=== PATIENT | female | born 1990 | race Hispanic/Latino ===

== ENCOUNTER → 2021-03-05 | Emergency (ER) | payer BC, OTHER ==
[~2021-03-05] VITALS: Ht 154.9 cm; Wt 72.6 kg
[~2021-03-05] MED LIST: KETOROLAC TROMETHAMINE 30 MG/ML VIAL IV NR; PANTOPRAZOLE 40 MG 10ML VIAL IV NR; SODIUM CHLORIDE 0.9% 1000ML 1,000 ML IV STA
[2021-03-05 11:51] LABS: BASOPHILS % 0.3 % (0.0-1.0); EOSINOPHILS # (AUTO) 0.1 (0.0-0.4); EOSINOPHILS % 1.6 % (0.0-6.0); HEMATOCRIT 42.6 % (34.2-44.1); LYMPHOCYTES # (AUTO) 1.5 (1.0-3.2); LYMPHOCYTES % 23.5 % (18.0-39.1); MEAN CORPUSCULAR HEMOGLOBIN 32.1 pg (28-32); MEAN CORPUSCULAR HGB CONC 32.9 g/dL (31-35); MEAN CORPUSCULAR VOLUME 97.7 fL (81-99); MONOCYTES # (AUTO) 0.4 (0.2-0.8); MONOCYTES % 6.6 % (4.4-11.3); NEUTROPHILS # (AUTO) 4.3 (2.1-6.9); NEUTROPHILS % 67.7 % (38.7-80.0); PLATELET COUNT 252 x10e3/uL (140-360); RED BLOOD COUNT 4.36 x10e6/uL (3.6-5.1); RED CELL DISTRIBUTION WIDTH 12.1 % (11.7-14.4)
[2021-03-05 12:00] LABS: CLARITY,URINE CLEAR (CLEAR); COLOR,URINE YELLOW (YELLOW); KETONES,URINE NEGATIVE (NEGATIVE); LEUKOCYTE ESTERASE ,URINE NEGATIVE (NEGATIVE); NITRITE,URINE NEGATIVE (NEGATIVE); PROTEIN,URINE DIPSTICK NEGATIVE (NEGATIVE); URINE UROBILINOGEN 0.2 mg/dL (0.2 - 1)
[2021-03-05 12:15] LABS: BACTERIA,URINE FEW /HPF; EPITHELIAL CELLS,URINE FEW /LPF; MUCUS,URINE RARE (RARE); RBC,URINE 0-5 /HPF (0-5); WBC,URINE (MAN) 0-5 /HPF (0-5)
[2021-03-05 12:17] LABS: ALANINE AMINOTRANSFERASE 11 IU/L (0-55); ALBUMIN/GLOBULIN RATIO 1.1 (0.8-2.0); ALKALINE PHOSPHATASE 81 IU/L (40-150); BLOOD UREA NITROGEN 11 mg/dL (7-26); BUN/CREATININE RATIO 15 (6-25); CALCIUM 8.9 mg/dL (8.4-10.2); CARBON DIOXIDE 24 mmol/L (22-29); CHLORIDE 103 mmol/L (98-107); CREATINE KINASE 51 IU/L (29-168); CREATININE, SERUM 0.75 mg/dL (0.57-1.11); EST GLOMERULAR FILTRATION RATE > 60 ML/MIN (60-); GLUCOSE 87 mg/dL (74-118); MAGNESIUM 1.9 MG/DL (1.3-2.1); SODIUM 136 mmol/L (136-145)
[2021-03-05 12:18] LABS: INR 0.87; PROTHROMBIN TIME 12.4 seconds (11.9-14.5)
[2021-03-05 12:19] LABS: PARTIAL THROMBOPLASTIN TIME 29.2 seconds (23.8-35.5)
== END | disposition home or self-care (01) ==
LOC: ER 11:15
DX: R06.02 Shortness of breath (principal); M94.0 Chondrocostal junction syndrome [Tietze]
CPT/HCPCS: 36415; 71045; 80053; 81001; 81025; 82550; 82553; 83735; 84484; 84702; 85025; 85379; 85610; 85730; 87086; 93005; 99284; C9113; J1885; J7030

== ENCOUNTER → 2021-09-22 | Outpatient (CLI) | payer BC ==
[2021-09-22 15:01] LABS: ALBUMIN 3.9 g/dL (3.5-5.0); BILIRUBIN,DIRECT 0.2 mg/dL (0.0-0.5)
== END ==
LOC: LAB 13:59
PROVIDERS: ATTEND Podiatrist Foot & Ankle Surgery
DX: R94.5 Abnormal results of liver function studies (principal)
CPT/HCPCS: 36415; 80076

== ENCOUNTER 2024-10-05 06:12 | Inpatient (IN) | payer BC ==
[~2024-10-05] VITALS: Ht 154.9 cm; Wt 70.3 kg
[2024-10-05] VITALS (8 sets, daily range): BP systolic 113–121; BP diastolic 66–78; PULSE 60–85; RESP 16–19; TEMP 97.5–99.1; O2SAT 97–100
[~2024-10-05 06:12] MED LIST changes: +ASHWAGANDHA300 MG; +BUPROPION XL150 MG PO; +HAIR, SKIN A66.7 MCG; -KETOROLAC TROMETHAMINE 30 MG/ML VIAL IV NR; +MULTI-VITAMIN1 EACH PO; -PANTOPRAZOLE 40 MG 10ML VIAL IV NR; -SODIUM CHLORIDE 0.9% 1000ML 1,000 ML IV STA
[2024-10-05] MEDS: LACTATED RINGER'S 1,000 ML ONE (07:07)
[2024-10-05] MEDS: CEFAZOLIN SODIUM 2 GM ONE (07:08)
[2024-10-05] MEDS ORDERED: MIDAZOLAM HCL 2 MG/2 ML VIAL ONE (07:48)
[2024-10-05] MEDS ORDERED: PROPOFOL IV EMULSION 10 MG/ML 20 ML VIAL ONE (07:48)
[2024-10-05] MEDS ORDERED: LIDOCAINE HCL 2% LOCAL INJ 5 ML SDV VIAL INJ ONE (07:48)
[2024-10-05] MEDS ORDERED: FENTANYL CITRATE/PF 100MCG/2 ML INJ ONE (07:48)
[2024-10-05] MEDS ORDERED: ROCURONIUM BROMIDE 1 ML IV ONE (07:48)
[2024-10-05] MEDS ORDERED: FAMOTIDINE 20 MG/2 ML VIAL IV ONE (07:51)
[2024-10-05] MEDS ORDERED: HYDROCODONE/APAP 7.5MG-325MG 1 EA TAB PO PRN (08:00)
[2024-10-05] MEDS ORDERED: SCOPOLAMINE 1 MG PATCH TOP SCH (08:00)
[2024-10-05] MEDS ORDERED: DEXAMETHASONE SOD PHOS INJ 4 MG/ML SDV ONE (08:20)
[2024-10-05] MEDS ORDERED: METOCLOPRAMIDE HCL 10 MG/2ML VIAL ONE (08:20)
[2024-10-05] MEDS ORDERED: ACETAMINOPHEN 1000 MG/100 ML 100 ML IV ONE (08:32)
[2024-10-05] MEDS ORDERED: SUGAMMADEX SODIUM 200 MG/2 ML VIAL IV ONE (09:01)
[2024-10-05] MEDS: FENTANYL CITRATE/PF 100MCG/2 ML INJ ONE (10:50)
[2024-10-05] MEDS: Morphine 2mg Syringe 2 MG/ML SYR IV PRN (13:03)
[2024-10-05] MEDS: SCOPOLAMINE 1 MG PATCH TOP SCH (14:10)
[2024-10-05] MEDS: ONDANSETRON HCL INJ 2MG/ML 2ML 2 MG/ML VIAL IV PRN (19:49)
[2024-10-05] MEDS: ENOXAPARIN SOD INJ 40 MG/0.4 ML SYR SC SCH (19:49)
[2024-10-05] MEDS: LACTATED RINGER'S 1,000 ML IV SCH (22:51)
[2024-10-06 03:07] VITALS: BP 107/71; PULSE 66; RESP 18; TEMP 98.5; O2SAT 97
[2024-10-06 05:42] LABS: BASOPHILS % 0.2 % (0.0-1.0); EOSINOPHILS % 0.1 % (0.0-6.0); HEMATOCRIT 37.1 % (34.2-44.1); HEMOGLOBIN 12.7 g/dL (12.0-16.0); LYMPHOCYTES # (AUTO) 1.3 (1.0-3.2); LYMPHOCYTES % 11.2 % (18.0-39.1); MEAN CORPUSCULAR HEMOGLOBIN 33.9 pg (28-32); MEAN CORPUSCULAR HGB CONC 34.2 g/dL (31-35); MEAN CORPUSCULAR VOLUME 98.9 fL (81-99); MONOCYTES # (AUTO) 0.9 (0.2-0.8); MONOCYTES % 7.8 % (4.4-11.3); NEUTROPHILS % 80.1 % (38.7-80.0); PLATELET COUNT 242 x10e3/uL (140-360); RED BLOOD COUNT 3.75 x10e6/uL (3.6-5.1); RED CELL DISTRIBUTION WIDTH 11.7 % (11.7-14.4); WHITE BLOOD COUNT 11.23 x10e3/uL (4.8-10.8)
[2024-10-06 06:17] LABS: ALBUMIN 3.6 g/dL (3.5-5.0); ALBUMIN/GLOBULIN RATIO 1.2 (0.8-2.0); ANION GAP 14.5 mmol/L (8-16); BILIRUBIN,TOTAL 1.3 mg/dL (0.2-1.2); CALCIUM 8.9 mg/dL (8.4-10.2); CREATININE, SERUM 0.77 mg/dL (0.57-1.11); PHOSPHORUS 2.7 MG/DL (2.3-4.7); POTASSIUM 4.5 mmol/L (3.5-5.1); TOTAL PROTEIN 6.5 g/dL (6.5-8.1)
[2024-10-06 07:48] VITALS: PULSE 78; RESP 16; O2SAT 96
[2024-10-06 08:54] VITALS: BP 112/73; PULSE 64; RESP 18; TEMP 97.9; O2SAT 99
[2024-10-06 09:08] VITALS: BP 112/73; PULSE 64; RESP 18; TEMP 97.9; O2SAT 99
[2024-10-06] MEDS ORDERED: DIATRIZOATE MEGL/DIATRIZOA SOD 30 ML BTL PO ONE (09:49)
[2024-10-06 11:56] VITALS: BP 114/77; PULSE 57; RESP 20; TEMP 98.7; O2SAT 100
[2024-10-06 13:08] VITALS: PULSE 76; RESP 16; O2SAT 97
== END 2024-10-06 14:06 | disposition home or self-care (01) | DRG 328 ==
LOC: OR 06:12 → PACU V 07:52 → MED/SURG2 11:08 → OBSVTOIN 10-06 13:24
PROVIDERS: ADMIT Internal Medicine; ATTEND Internal Medicine
PROC: 0BQT4ZZ Repair Diaphragm, Percutaneous Endoscopic Approach (ICD-10-PCS; principal; 2024-10-05 08:02)
PROC: 0D164ZA Bypass Stomach to Jejunum, Percutaneous Endoscopic Approach (ICD-10-PCS; 2024-10-05 08:02)
DX: K21.00 Gastro-esophageal reflux disease with esophagitis, without bleeding (principal); K44.9 Diaphragmatic hernia without obstruction or gangrene; Z98.84 Bariatric surgery status
CPT/HCPCS: 36415; 74246; 80053; 81025; 83735; 84100; 85025; 94799; 99252; G0378; J0690; J1100; J1650; J2003; J2250; J2270; J2405; J2765; Q9963

== ENCOUNTER 2024-10-13 14:03 | Observation (INO) | payer BC ==
[~2024-10-13] VITALS: Ht 154.9 cm; Wt 67.6 kg
[2024-10-13 15:06] LABS: BASOPHILS % 0.2 % (0.0-1.0); EOSINOPHILS # (AUTO) 0.1 (0.0-0.4); EOSINOPHILS % 1.2 % (0.0-6.0); HEMATOCRIT 41.8 % (34.2-44.1); HEMOGLOBIN 14.2 g/dL (12.0-16.0); LYMPHOCYTES # (AUTO) 1.2 (1.0-3.2); LYMPHOCYTES % 24.6 % (18.0-39.1); MONOCYTES # (AUTO) 0.3 (0.2-0.8); MONOCYTES % 5.3 % (4.4-11.3); NEUTROPHILS # (AUTO) 3.4 (2.1-6.9); NEUTROPHILS % 68.3 % (38.7-80.0); PLATELET COUNT 272 x10e3/uL (140-360); RED BLOOD COUNT 4.18 x10e6/uL (3.6-5.1); RED CELL DISTRIBUTION WIDTH 11.8 % (11.7-14.4); WHITE BLOOD COUNT 4.91 x10e3/uL (4.8-10.8)
[2024-10-13 15:11] LABS: INR 0.88; PROTHROMBIN TIME 12.5 seconds (11.9-14.5)
[2024-10-13 15:12] LABS: PARTIAL THROMBOPLASTIN TIME 27.5 seconds (23.8-35.5)
[2024-10-13 15:21] LABS: ALBUMIN 3.9 g/dL (3.5-5.0); ALBUMIN/GLOBULIN RATIO 1.2 (0.8-2.0); ANION GAP 16.4 mmol/L (8-16); BILIRUBIN,TOTAL 0.7 mg/dL (0.2-1.2); CALCIUM 9.7 mg/dL (8.4-10.2); CREATININE, SERUM 0.69 mg/dL (0.57-1.11); TOTAL PROTEIN 7.1 g/dL (6.5-8.1)
[2024-10-13 15:25] LABS: POTASSIUM 3.4 mmol/L (3.5-5.1)
[2024-10-13 15:26] LABS: TROPONIN I 0.002 ng/mL (0-0.300)
[2024-10-13 15:30] LABS: LIPASE 23 U/L (8-78)
[2024-10-13] MEDS: Morphine 4mg INJECTION 4 MG/ML INJ IV STA (15:37)
[2024-10-13] MEDS: ONDANSETRON HCL INJ 2MG/ML 2ML 2 MG/ML VIAL IV STA (15:37)
[2024-10-13] MEDS: SODIUM CHLORIDE 0.9% 1000ML 1,000 ML IV STA (15:37)
[2024-10-13] MEDS ORDERED: Morphine 2mg Syringe 2 MG/ML SYR IV PRN (17:00)
[2024-10-13] MEDS ORDERED: ONDANSETRON HCL INJ 2MG/ML 2ML 2 MG/ML VIAL IV PRN (17:00)
[2024-10-13 17:09] VITALS: PULSE 67; RESP 18; TEMP 98.5
[2024-10-13 18:18] VITALS: BP 105/76; PULSE 60; RESP 18; TEMP 97.7; O2SAT 99
[2024-10-13 19:15] VITALS: BP 100/70; PULSE 56; RESP 20; TEMP 98.1; O2SAT 99
[2024-10-13] MEDS: SODIUM CHLORIDE 0.9% 1000ML 1,000 ML IV SCH (19:20)
[2024-10-13 20:00] VITALS: BP 100/70; PULSE 56; RESP 20; TEMP 98.1; O2SAT 99
[2024-10-13 20:09] VITALS: BP 100/70; PULSE 56; RESP 20; TEMP 98.1; O2SAT 99
[2024-10-13] MEDS ORDERED: CALCIUM500 MG PO (20:22)
[2024-10-13] MEDS ORDERED: B12 ACTIVE1000 MCG PO (20:22)
[2024-10-13 23:24] VITALS: BP 100/61; PULSE 59; RESP 18; TEMP 97.9; O2SAT 100
[2024-10-14 04:06] VITALS: BP 110/60; PULSE 62; RESP 18; TEMP 98.2; O2SAT 100
[2024-10-14 05:09] LABS: BASOPHILS % 0.4 % (0.0-1.0); EOSINOPHILS # (AUTO) 0.1 (0.0-0.4); EOSINOPHILS % 2.3 % (0.0-6.0); HEMATOCRIT 34.6 % (34.2-44.1); HEMOGLOBIN 11.4 g/dL (12.0-16.0); LYMPHOCYTES % 34.9 % (18.0-39.1); MEAN CORPUSCULAR HEMOGLOBIN 33.9 pg (28-32); MEAN CORPUSCULAR HGB CONC 32.9 g/dL (31-35); MONOCYTES # (AUTO) 0.5 (0.2-0.8); MONOCYTES % 8.9 % (4.4-11.3); NEUTROPHILS % 53.1 % (38.7-80.0); PLATELET COUNT 232 x10e3/uL (140-360); RED BLOOD COUNT 3.36 x10e6/uL (3.6-5.1); RED CELL DISTRIBUTION WIDTH 11.8 % (11.7-14.4); WHITE BLOOD COUNT 5.61 x10e3/uL (4.8-10.8)
[2024-10-14 05:41] LABS: ALBUMIN/GLOBULIN RATIO 1.3 (0.8-2.0); ANION GAP 12.5 mmol/L (8-16); BILIRUBIN,TOTAL 0.6 mg/dL (0.2-1.2); CALCIUM 8.2 mg/dL (8.4-10.2); CREATININE, SERUM 0.72 mg/dL (0.57-1.11); POTASSIUM 3.5 mmol/L (3.5-5.1); TOTAL PROTEIN 5.4 g/dL (6.5-8.1)
[2024-10-14 08:34] VITALS: BP 103/62; PULSE 63; RESP 18; TEMP 98
[2024-10-14 08:35] VITALS: BP 103/62; PULSE 63; RESP 18; TEMP 98; O2SAT 100
[2024-10-14] MEDS: BISACODYL 10 MG SUPP PR ONE (11:55)
== END 2024-10-14 15:25 | disposition home or self-care (01) ==
LOC: ER 14:45 → ERHOLD 16:55 → MED/SURG 18:16
PROVIDERS: ADMIT Internal Medicine; ATTEND Internal Medicine
DX: K59.00 Constipation, unspecified (principal); K21.9 Gastro-esophageal reflux disease without esophagitis; Z98.84 Bariatric surgery status; F32.A Depression, unspecified
CPT/HCPCS: 36415 ×2; 71260; 74018; 74177; 80053 ×2; 82550; 83690; 84484; 84702; 85025 ×2; 85610; 85730; 93005; 99252; 99284; G0378 ×2; J2270; J2405; J2470 ×2; J7030 ×2